=== PATIENT | female | born 1975 | race Two or more races ===

== ENCOUNTER 2024-05-21 13:08 | Inpatient (IN) | payer BC, OTHER ==
[~2024-05-21] VITALS: Ht 157.5 cm; Wt 82.9 kg
[2024-05-21 13:47] LABS: Basophils # (auto) 0 10 ^3/uL (0-0.2); Eosinophils # (auto) 0.1 10 ^3/uL (0-0.8); Mean Corpuscular Hemoglobin 25.4 pg (28.0-32.0); Neutrophils # (auto) 2.1 10 ^3/uL (1.6-8.6); Red Blood Cells 4.72 10^6/uL (4.0-5.20); White Blood Cell 3.5 10^3/uL (4.4-10.8)
[2024-05-21 13:49] LABS: Basophils % (auto) 0.8 % (0.0-2.0); Eosinophils % (auto) 1.5 % (0.0-7.0); Hematocrit 36.1 % (36.0-46.0); Lymphocytes % (auto) 28.2 % (10.0-50.0); Mean Corpuscular Hgb Conc. 33.2 g/dL (32.0-36.0); Mean Corpuscular Volume 76.6 fL (80.0-100.0); Monocytes # (auto) 0.4 10 ^3/uL (0-1.3); Monocytes % (auto) 10.3 % (0.0-12.0); Neutrophils % (auto) 59.2 % (37.0-80.0); Nucleated Red Blood Cells % 0.2 %; Red Cell Distribution Width 15.5 % (11.8-14.3)
[2024-05-21 14:20] LABS: Chloride 107 mmol/L (98-107); Potassium 3.4 mmol/L (3.5-5.1); Sodium 138 mmol/L (136-145)
[2024-05-21 14:21] LABS: Anion Gap 6 (5-15); Calcium 9.3 mg/dL (8.7-10.4); Carbon Dioxide 25 mmol/L (20-30)
[2024-05-21 14:26] LABS: BUN/Creatinine Ratio 11.8 (10.0-20.0); Blood Urea Nitrogen 9 mg/dL (9-23); Glucose 142 mg/dL (74-106); Lipase 24 U/L (12-53)
[2024-05-21] MEDS: POTASSIUM EFFERVESENT TAB 25 MEQ PO ONE (15:06)
[2024-05-21 15:17] LABS: Urine Bacteria None Seen /hpf (None Seen)
[2024-05-21 15:47] LABS: Urine Blood 1+ /uL (Negative); Urine Clarity Clear (Clear); Urine Color Light-Yellow (Yellow); Urine Protein, UAD Negative (Negative); Urine Specific Gravity 1.012 (1.001-1.035); Urine Urobilinogen Normal (Negative); Urine WBC <1 /hpf (0 - 5); Urine pH 6.5 (5.0-9.0)
[2024-05-21] MEDS ORDERED: ACETAMINOPHEN 325 MG TAB PO PRN (17:30)
[2024-05-21] MEDS: SODIUM CHLORIDE 0.9% 1,000 ML IV ONE ×2 (17:49→19:25)
[2024-05-21] MEDS: cefTRIAXone 1GM/50ML D5W 50 ML IV ONE (17:49)
[2024-05-21 17:58] VITALS: PULSE 65; RESP 18; O2SAT 100
[2024-05-21] MEDS: MORPHINE SULFATE INJ 2 MG/ml SYRG IV PRN (18:09)
[2024-05-21] MEDS: ONDANSETRON HCL 4 MG/2 ML VIAL IV PRN (18:09)
[2024-05-21] MEDS: metroNIDAZOLE 500MG/100ML 100 ML IV ONE (18:27)
[2024-05-21] MEDS: HYDROcodone-ACET 5/325MG TAB PO PRN (22:08)
[2024-05-21] MEDS: metroNIDAZOLE 500MG/100ML 100 ML IV SCH (23:10)
[2024-05-22] VITALS (8 sets, daily range): BP systolic 107–128; BP diastolic 53–72; PULSE 56–77; RESP 15–20; TEMP 97.7–98.8; O2SAT 98–100
[2024-05-22] MEDS ORDERED: ALPR0.5T7 PO (03:50)
[2024-05-22 09:50] LABS: Basophils # (auto) 0 10 ^3/uL (0-0.2); Eosinophils # (auto) 0.1 10 ^3/uL (0-0.8); Mean Corpuscular Hgb Conc. 32.6 g/dL (32.0-36.0); Monocytes # (auto) 0.4 10 ^3/uL (0-1.3); Nucleated Red Blood Cells % 0.1 %; Red Blood Cells 4.17 10^6/uL (4.0-5.20)
[2024-05-22 09:55] LABS: Basophils % (auto) 0.8 % (0.0-2.0); Eosinophils % (auto) 1.7 % (0.0-7.0); Hematocrit 32.3 % (36.0-46.0); Hemoglobin 10.5 g/dL (12.2-16.2); Lymphocytes % (auto) 26.1 % (10.0-50.0); Mean Corpuscular Hemoglobin 25.3 pg (28.0-32.0); Mean Corpuscular Volume 77.4 fL (80.0-100.0); Monocytes % (auto) 10.5 % (0.0-12.0); Neutrophils # (auto) 2.4 10 ^3/uL (1.6-8.6); Neutrophils % (auto) 60.9 % (37.0-80.0); Red Cell Distribution Width 15.7 % (11.8-14.3); White Blood Cell 3.9 10^3/uL (4.4-10.8)
[2024-05-22 10:04] LABS: Chloride 108 mmol/L (98-107); Potassium 3.2 mmol/L (3.5-5.1); Sodium 137 mmol/L (136-145)
[2024-05-22 10:05] LABS: Anion Gap 6 (5-15); Calcium 8.8 mg/dL (8.7-10.4); Carbon Dioxide 23 mmol/L (20-30)
[2024-05-22 10:10] LABS: BUN/Creatinine Ratio 9.7 (10.0-20.0); Blood Urea Nitrogen 7 mg/dL (9-23); Glucose 146 mg/dL (74-106)
[2024-05-22] MEDS: ALPRAZolam 0.5 MG TAB PO PRN (13:48)
[2024-05-22] MEDS: POTASSIUM EFFERVESENT TAB 25 MEQ PO ONE (13:48)
[2024-05-23 01:00] VITALS: BP 102/49; PULSE 64; RESP 20; TEMP 97.5; O2SAT 100
[2024-05-23 05:00] VITALS: BP 112/57; PULSE 65; RESP 20; TEMP 98.8; O2SAT 98
[2024-05-23 06:52] LABS: Eosinophils # (auto) 0.2 10 ^3/uL (0-0.8); Monocytes # (auto) 0.8 10 ^3/uL (0-1.3); Monocytes % (auto) 16.1 % (0.0-12.0); Neutrophils # (auto) 2.1 10 ^3/uL (1.6-8.6); Red Blood Cells 4.03 10^6/uL (4.0-5.20)
[2024-05-23 06:57] LABS: Basophils # (auto) 0 10 ^3/uL (0-0.2); Eosinophils % (auto) 4.4 % (0.0-7.0); Hemoglobin 10.5 g/dL (12.2-16.2); Lymphocytes # (auto) 1.6 10 ^3/uL (0.4-5.4); Lymphocytes % (auto) 34.3 % (10.0-50.0); Mean Corpuscular Hgb Conc. 33.7 g/dL (32.0-36.0); Neutrophils % (auto) 44.2 % (37.0-80.0); Red Cell Distribution Width 15.6 % (11.8-14.3); White Blood Cell 4.7 10^3/uL (4.4-10.8)
[2024-05-23 07:07] LABS: Alanine Aminotransferase 23 U/L (7-40); Alkaline Phosphatase 43 U/L (46-116); Anion Gap 4 (5-15); BUN/Creatinine Ratio 7.5 (10.0-20.0); Blood Urea Nitrogen 5 mg/dL (9-23); Calcium 8.8 mg/dL (8.7-10.4); Carbon Dioxide 27 mmol/L (20-30); Chloride 108 mmol/L (98-107); Glucose 96 mg/dL (74-106); Magnesium 2.4 mg/dL (1.6-2.6); Sodium 139 mmol/L (136-145)
[2024-05-23 07:08] LABS: Albumin 3.9 g/dL (3.2-4.8); Aspartate Aminotransferase 25 U/L (13-40); Bilirubin, Total 0.5 mg/dL (0.2-1.0); Total Protein 6.6 g/dL (5.7-8.2)
[2024-05-23 08:59] VITALS: BP_SYST 101; BP_SYST 111; BP_DIAS 44; BP_DIAS 72; PULSE 60; PULSE 89; RESP 17; TEMP 98.1; TEMP 98.3; O2SAT 94; O2SAT 98
[2024-05-23 11:51] VITALS: BP_SYST 89; BP_SYST 98; BP_DIAS 48; BP_DIAS 55; PULSE 62; PULSE 82; RESP 17; TEMP 98.2; TEMP 98.3; O2SAT 100
[2024-05-23] MEDS ORDERED: MET500T PO (13:52)
== END 2024-05-23 15:32 | disposition home or self-care (01) | DRG 391 ==
LOC: ER 13:08 → OVERFLOW 17:34 → WEST WING 05-22 03:11
PROVIDERS: ADMIT Nurse Practitioner; ATTEND Nurse Practitioner
DX: K52.9 Noninfective gastroenteritis and colitis, unspecified (principal); N17.0 Acute kidney failure with tubular necrosis; E87.6 Hypokalemia; F41.9 Anxiety disorder, unspecified; N93.9 Abnormal uterine and vaginal bleeding, unspecified; R73.9 Hyperglycemia, unspecified; D50.0 Iron deficiency anemia secondary to blood loss (chronic); E66.9 Obesity, unspecified; Z68.33 Body mass index [BMI] 33.0-33.9, adult
CPT/HCPCS: 36415; 74176; 80048; 80053; 81001; 83605; 83690; 83735; 85025; 96365; 96367; 96375; G0378; J2405; J3490